=== PATIENT | male | born 1945 | race Caucasian/White ===

== ENCOUNTER 2017-01-20 09:43 | Emergency (ER) | payer MEDICARE ==
[2017-01-20 09:48] VITALS: RESP 18; TEMP 98.5
[2017-01-20 10:21] LABS: PH,URINE 7.5 (5.0-8.0); URINE BILIRUBIN NEGATIVE (NEGATIVE); URINE BLOOD TRACE (NEGATIVE); URINE COLOR YELLOW (YELLOW); URINE GLUCOSE (UA) Normal (Normal); URINE KETONE TRACE mg/dL (NEGATIVE); URINE PROTEIN TRACE mg/dL (NEGATIVE); URINE UROBILINOGEN 0.2 mg/dL (0.2-1.0)
[2017-01-20 10:22] LABS: RBC URINE 2 /hpf (0-3); URINE LEUKOCYTE ESTERASE Negative Leu/uL (Negative)
--- NOTE | 2017-01-20 11:08 | C.PDOC ---
Time Seen by Provider: 01/20/17 10:40 Chief Complaint (Nursing): Male Genitourinary History Per: Patient Onset/Duration Of Symptoms: Days (about 1 week), Waxing/Waning Current Symptoms Are (Timing): Still Present Severity: Moderate Quality Of Discomfort: Burning Associated Symptoms: Urinary Symptoms Alleviating Factors: None Additional History Per: Prior Records Past Medical History Reviewed: Historical Data, Nursing Documentation, Vital Signs Vital Signs: Last Vital Signs Temp 98.5 F 01/20/17 09:48 Pulse 94 H 01/20/17 09:48 Resp 18 01/20/17 09:48 BP 153/88 H 01/20/17 09:48 Pulse Ox 97 01/20/17 09:48 - Medical History PMH: Arthritis, HTN, Rheumatoid Arthritis Surgical History: Hernia Repair (to the right inguinal area) Family History: States: Unknown Family Hx - Social History Hx Tobacco Use: No Hx Alcohol Use: No Hx Substance Use: No - Immunization History Hx Tetanus Toxoid Vaccination: No Hx Influenza Vaccination: No Hx Pneumococcal Vaccination: No Review Of Systems Except As Marked, All Systems Reviewed And Found Negative. Constitutional: Negative for: Fever, Chills, Weakness Cardiovascular: Negative for: Chest Pain Respiratory: Negative for: Cough, Shortness of Breath Gastrointestinal: Negative for: Vomiting, Abdominal Pain Genitourinary: Positive for: Dysuria. Negative for: Penile Discharge, Scrotal Pain Musculoskeletal: Negative for: Neck Pain Skin: Negative for: Rash Neurological: Negative for: Weakness, Numbness, Seizures, Altered Mental Status Physical Exam - Physical Exam Appears: Non-toxic, No Acute Distress Skin: Normal Color, Warm, Dry, No Rash Head: Atraumatic, Normacephalic Eye(s): bilateral: PERRL, EOMI Neck: Normal ROM, Supple Cardiovascular: Rhythm Regular Respiratory: Normal Breath Sounds, No Accessory Muscle Use Gastrointestinal/Abdominal: Soft, No Tenderness Back: No CVA Tenderness Male Genital: No Testicular Tenderness, No Testicular Swelling, No Scrotal Swelling Extremity: Normal ROM Neurological/Psych: Oriented x3, Normal Motor, Normal Sensation ED Course And Treatment O2 Sat by Pulse Oximetry: 97 Pulse Ox Interpretation: Normal Progress Note: Pt states he took a Cipro that he obtained from his yesterday. Medical Decision Making Medical Decision Making: Urinalysis is probably negative because pt took antibiotics yesterday. Will continue with same. Disposition Counseled Patient/Family Regarding: Studies Performed, Diagnosis, Need For Followup, Rx Given - Disposition Referrals: Gregg Garcia MD [Primary Care Provider] - Disposition: HOME/ ROUTINE Disposition Time: 11:08 Condition: IMPROVED Additional Instructions: Follow up with your doctor this week for further evaluation and treatment. Return to the ER if you develop fever, abdominal pain, trouble urinating, worsening of symptoms or if you have any other concerns. Prescriptions: Ciprofloxacin [Cipro] 1 tab PO BID #10 tab Instructions: Dysuria (ED) Print Language: MACEDONIAN - Clinical Impression Clinical Impression: UTI symptoms
[2017-01-20 11:17] VITALS: BP 125/72; PULSE 72; O2SAT 98
== END 2017-01-20 11:24 | disposition home or self-care (01) ==
LOC: C.ER 09:43 → SUPCPDRO 09:43 → C.ER 11:24
DX: R30.0 Dysuria (principal)

== ENCOUNTER 2017-01-25 16:49 | Emergency (ER) | payer MEDICARE ==
[2017-01-25 17:00] VITALS: RESP 18
--- NOTE | 2017-01-25 17:34 | C.PDOC ---
History Of Present Illness 71 y/o M p/w pruritis and rash since awakening this morning. States has been newly on Cipro and denies any new foods, clothes, sheets, travel. He denies throat or tongue swelling. Denies dyspnea. Time Seen by Provider: 01/25/17 17:04 Chief Complaint (Nursing): Allergic Reaction Past Medical History Vital Signs: Last Vital Signs Temp 97.5 F L 01/25/17 16:56 Pulse 76 01/25/17 16:56 Resp 18 01/25/17 16:56 BP 132/72 01/25/17 16:56 Pulse Ox 97 01/25/17 17:40 - Medical History PMH: Arthritis, HTN, Rheumatoid Arthritis Surgical History: Hernia Repair (to the right inguinal area) Family History: States: Unknown Family Hx - Social History Hx Tobacco Use: No Hx Alcohol Use: No Hx Substance Use: No - Immunization History Hx Tetanus Toxoid Vaccination: (unk) Hx Influenza Vaccination: No Hx Pneumococcal Vaccination: (unk) Review Of Systems Except As Marked, All Systems Reviewed And Found Negative. Cardiovascular: Negative for: Chest Pain Respiratory: Negative for: Shortness of Breath Physical Exam - Physical Exam Additional Physical Exam Comments: Constitutional: No acute distress. Head: Normocephalic. Atraumatic. Eyes: PERRL. ENT: Airway patent. Moist mucous membranes. Neck: Supple. Cardiovascular: Regular rate. Radial pulse 2+ bilaterally. Chest: No tenderness. Respiratory: No stridor or wheezing. Clear to auscultation bilaterally. GI: Soft. Nontender. Nondistended. Back: No CVA tenderness. Musculoskeletal: No tenderness or swelling of extremities. Skin: Scattered urticaria. Neurologic: Alert, no focal deficit. ED Course And Treatment O2 Sat by Pulse Oximetry: 97 Medical Decision Making Medical Decision Making: Benadryl, Famotodine, Prednisone. Discontinue Cipro. Culture from last visit negative, will advise f/u with urology but no indication for different antibiotic at this time. Disposition - Disposition Disposition: HOME/ ROUTINE Disposition Time: 18:21 Condition: STABLE Additional Instructions: Your urine culture showed no growth of bacteria. You should follow up with a urologist. Prescriptions: DiphenhydrAMINE [Benadryl] 2 cap PO Q8 #25 cap Prednisone [Deltasone] 3 tab PO DAILY #12 tablet Famotidine [Pepcid] 1 tab PO BID #14 tab Instructions: General Allergic Reaction (ED) - Clinical Impression Clinical Impression: Allergic urticaria
[2017-01-25 18:50] VITALS: BP 128/68; PULSE 82; TEMP 98.1; O2SAT 98
== END 2017-01-25 18:51 | disposition home or self-care (01) ==
LOC: C.ER 16:49
DX: L50.0 Allergic urticaria (principal)

== ENCOUNTER 2017-01-29 23:16 | Emergency (ER) | payer MEDICARE ==
[2017-01-29 23:25] VITALS: BP 137/80; PULSE 70; TEMP 97.9; O2SAT 98
[2017-01-29] MEDS ORDERED: DiphenhydrAMINE 50 mg/ml Inj IVP STA (23:54)
[2017-01-29] MEDS ORDERED: Sodium Chloride 0.9% 1,000 ML IV ONE (23:54)
[2017-01-30] MEDS ORDERED: DiphenhydrAMINE 50 mg/ml Inj ONE (00:04)
--- NOTE | 2017-01-30 00:10 | C.PDOC ---
History Of Present Illness 71 yo male w/PMHx of RhA, HTN come in for evaluation of persistent hives developed 5 days ago after started taking Cipro. Pt reports, stopped medication on 01/25/17 when was seen here in ED and tx for allergic reaction, received Rx: Prednisone, Pepcid and benadryl that completed yesterday without significant improvement in sx. Pt describes hives as pruritic, persistent, localized over body. Otherwise, pt denies fever, chills, headache, dizziness, drooling, dysphagia, dyspnea, CP, SOB, palpitation, abd. pain, N/V, denies edema. Ambulate to Ed for evaluation, not in any apparent distress. Time Seen by Provider: 01/29/17 23:32 Chief Complaint (Nursing): Allergic Reaction History Per: Patient Onset/Duration Of Symptoms: Gradual Current Symptoms Are (Timing): Still Present Possible Cause: Medication Associated Symptoms: Skin Rash Past Medical History Reviewed: Historical Data, Nursing Documentation, Vital Signs Vital Signs: Last Vital Signs Temp 97.9 F 01/29/17 23:20 Pulse 70 01/29/17 23:20 Resp 18 01/29/17 23:20 BP 137/80 01/29/17 23:20 Pulse Ox 98 01/30/17 00:31 - Medical History PMH: Arthritis, HTN, Rheumatoid Arthritis Surgical History: Hernia Repair (to the right inguinal area) Family History: States: Unknown Family Hx - Social History Hx Tobacco Use: No Hx Alcohol Use: No Hx Substance Use: No - Immunization History Hx Tetanus Toxoid Vaccination: (unk) Hx Influenza Vaccination: No Hx Pneumococcal Vaccination: (unk) Review Of Systems Except As Marked, All Systems Reviewed And Found Negative. Constitutional: Negative for: Fever, Chills ENT: Negative for: Mouth Pain, Mouth Swelling, Throat Swelling Cardiovascular: Negative for: Chest Pain, Palpitations Respiratory: Negative for: Shortness of Breath, Wheezing Gastrointestinal: Negative for: Nausea, Vomiting, Abdominal Pain, Diarrhea Skin: Positive for: Rash Neurological: Negative for: Weakness, Numbness, Altered Mental Status, Headache , Dizziness Physical Exam - Physical Exam Appears: Well, Non-toxic, No Acute Distress Skin: Normal Color, Warm, Rash (scattered urticaria to B/L UEs, posterior neck, anterior chest, B/L inner thighs. No clelulitis.) Eye(s): bilateral: PERRL Nose: Normal, No Discharge Oral Mucosa: Moist, No Drooling Tongue: Normal Appearing, No Swelling Lips: Normal Appearing, No Swelling Throat: Normal, No Erythema, No Exudate, No Drooling, Other (Airway paitent. Uvula mdiline, no edema.) Neck: Normal ROM, Trachea Midline, Supple Cardiovascular: Rhythm Regular Respiratory: No Decreased Breath Sounds, No Accessory Muscle Use, No Stridor, No Wheezing Gastrointestinal/Abdominal: Soft, No Tenderness, No Distention Extremity: Normal ROM, No Pedal Edema, No Deformity Neurological/Psych: Oriented x3, Normal Speech ED Course And Treatment O2 Sat by Pulse Oximetry: 98 Pulse Ox Interpretation: Normal Progress Note: Pt was OBS in ED for 2 hours and reports moderate improvement in sx after ED treatment. On re-eavl, pt is Afebrile, hemodynamicaly stable. Non- toxic. Tolerate Po well in ED. PusleOx 100% RA. ENT: No acute findings. Airway paitent, uvula midline, no edema. Lungs: CTA B/L, BS equal B/L. Abd: benign, (-) guarding, (-) rebound. NO periopheral edema. Skin: faiting of generalized body urticaria. Pt advised on course of ds, avoid Cipro in future due to allergic reaction. ref. to F/u with PMD and [employer] in 1-2 days for re -eval. return to ED if any worsening or new changes. Disposition Counseled Patient/Family Regarding: Diagnosis, Need For Followup, Rx Given - Disposition Referrals: Gregg Garcia MD [Non-Staff] - Disposition: HOME/ ROUTINE Disposition Time: 00:50 Condition: STABLE Additional Instructions: AVOID CIPROFLOXACIN IN FUTURE DUE TO ALLERGIC REACTION Encourage fluids Take medication as prescribed Follow up with MD in 2-3 days for re-evaluation WITHOUT FAIL. RETURN TO ED IF ANY WORSENING OR NEW CHANGES. Prescriptions: Famotidine [Pepcid] 20 mg PO BID #10 tab Prednisone [Deltasone] 40 mg PO DAILY #6 tablet Instructions: Urticaria (ED) - Clinical Impression Clinical Impression: Urticaria
[2017-01-30 01:02] VITALS: RESP 20
== END 2017-01-30 01:01 | disposition home or self-care (01) ==
LOC: C.ER 23:16
DX: L50.9 Urticaria, unspecified (principal)
CPT/HCPCS: 96374; 96375; 99284; J1200; J2930; J7040

== ENCOUNTER 2017-11-03 15:08 | Emergency (ER) | payer MEDICARE | END 2017-11-03 16:28 | disposition left against medical advice (07) | LOC: C.ER 15:08 | DX: Z02.89 Encounter for other administrative examinations (principal); R51 Headache ==